=== PATIENT | female | born 1965 | race Caucasian/White ===

== ENCOUNTER 2025-02-06 20:33 | Emergency (ER) | payer SELFPAY ==
[~2025-02-06] VITALS: Ht 152.4 cm; Wt 63.5 kg
--- NOTE | 2025-02-06 21:15 | ERN ---
General Chief Complaint: Other Problems Stated Complaint: SENT FROM [facility] FOR E[facility] Time Seen by MD: 20:43 Source: patient History of Present Illness Initial Comments Patient is a 59-year-old female coming in to have EKG performed. Per patient she has been at [facility] and was sent in for an EKG to be performed. Patient was asymptomatic. Allergies: Coded Allergies: ondansetron (Unverified Allergy, Unknown, HIVES, 02/06/25) tramadol (Unverified Allergy, Unknown, HALLUCINATIONS, 02/06/25) Past Medical History Past Medical History: Bipolar, Depression, Heart Disease, Seizure, Schizophrenia Medical History Other: HEART MURMUR,OSTEOPOROSIS,PTSD Past Surgical History: Unknown ROS Dictation CONSTITUTIONAL: No chills, no fever, no weakness, no diaphoresis, no malaise. HEAD/FACE: No signs of trauma. EENT: No eye pain, no blurred vision, no tearing, no double vision, no ear pain, no ear discharge, no nose pain, no nasal congestion, no throat pain, no throat swelling, no mouth pain. RESPIRATORY: No cough, no orthopnea, no SOB, no stridor, no wheezing. CARDIOVASCULAR: No chest pain, no edema, no palpitations, no syncope. GASTROINTESTINAL/ABDOMINAL: No abdominal pain, no constipation, no diarrhea, no nausea, no vomiting. GENITOURINARY: No abnormal discharge, no dysuria, no frequent urination, no hematuria. No complaints of pain in the genitals. MUSCULOSKELETAL: No back pain, no gout, no joint pain, no joint swelling, no muscle pain, no muscle stiffness, no neck pain. INTEGUMENTARY: No change in color, no change in hair/nails, no dryness, no lesion, no lumps, no rash. NEUROLOGICAL/PSYCH: No anxiety, not depressed, no emotional problem, no headache, no numbness, no pre-existing deficit, no history of seizures, no pj mors, no weakness. HEMATOLOGIC/LYMPHATIC: Not anemic, no history of blood clots, no apparent bleeding, no bruising, glands not swollen. All Systems Negative, Except as Noted. Physical Exam Physical Exam Dictation VITAL SIGNS: Reviewed. GENERAL APPEARANCE: Alert, oriented x3, no acute distress, obese. HEAD AND FACE: Non-traumatic. EYES: PERRL, pink conjunctivas, eyelid no trauma, anterior chamber clear. EARS: Pinnas intact and no signs of trauma or erythema. Ear canals clear and no discharge. TMs no erythema. NOSE: No discharge, no bleeding. OROPHARYNX: Mouth normal, teeth no caries, tongue pink. Pharynx clear, no erythema. Tonsils no exudates, no abscesses noted. Mucous membrane moist. NECK: Supple, non-tender, no thyromegaly, no masses, no JVD, no bruits. BREAST: Deferred. CHEST: No tenderness, no crepitus, no paradoxical movement, no retractions. LUNGS: Clear, well-ventilated, symmetric, no rales, no wheezing, no rhonchi, no stridor, good breath sounds bilaterally. HEART: Regular rate, regular rhythm, no murmur, no gallops. VASCULAR: No peripheral edema. ABDOMEN: Soft, positive bowel sounds, nondistended, no guarding, nontender, no rebound, no masses no hepatomegaly, no splenomegaly, no White's sign, no hernias. RECTAL: Deferred. GENITAL: Deferred. NEUROLOGICAL: Normal speech, gross motor function intact, gross sensory function intact. MUSCULOSKELETAL: Neck nontender, full range of motion, back nontender, full range of motion. EXTREMITIES: Nontender, full range of motion. SKIN: Color pink, dry, no turgor, no rash, no lacerations, no abrasions, no contusions. LYMPHATICS: Deferred. Results Laboratory and Microbiology Labs Reviewed?: Yes EKG/XRAY/US/CT/MRI EKG Comment 02/06/2025 time 8:38 p.m. Ventricular rate 93 Sinus rhythm [place] [address] wave elevation or depression MDM MDM: Differential diagnosis: Wellness exam, EKG evaluation Rationale: Tests considered and ordered secondary to shared decision making include: Previous outside records reviewed: Old ER visits. Risk of complication and/or morbidity or mortality of patient management: None Medications-Per medication reconciliation Need for hospitalization: Patient does not meet criteria for hospitalization. Patient is a 59-year-old female sent over from [facility] were patient was staying in a tub EKG performed. Patient states that she was asymptomatic. EKG was performed within normal limits. Patient will be discharged in stable condition. ED Course Orders Procedure Category Date Status Time 12 Lead Ekg Tracing- EKG 02/06/25 Logged Technical 20:35 Vital Signs Date Time Temp Pulse Resp B/P (MAP) Pulse Ox O2 Delivery O2 Flow Rate FiO2 02/06/25 20:47 98.4 85 16 153/68 96 Room Air 0 DX & DISP Disposition: Discharge Departure Impression: Primary Impression: Wellness examination Condition: Stable Additional Instructions: FOLLOW-UP WITH PRIMARY CARE PROVIDER IN 1 TO 2 DAYS. TAKE MEDICATIONS DIRECTED HERE IN THE EMERGENCY ROOM. OKAY TO CONTINUE HOME MEDICATIONS UNLESS OTHERWISE DISCUSSED DURING YOUR VISIT IN THE EMERGENCY ROOM TODAY. RETURN TO YOUR NEAREST EMERGENCY ROOM IF SYMPTOMS WORSEN OR IF THERE IS NO IMPROVEMENT. CALL 911 IF YOU NEED IMMEDIATE ASSISTANCE. TAKE TYLENOL [id number] NEEDED AND IF NO CONTRAINDICATIONS ARE PRESENT. INCREASE ORAL HYDRATION. A WOUND CULTURE OR URINE CULTURE WAS ORDERED HERE IN THE EMERGENCY ROOM DEPARTMENT PLEASE FOLLOW-UP WITH PRIMARY CARE PROVIDER AND ADVISE THEM TO GET REPORTS FROM OUR FACILITY. IF YOU HAD ANY MARK WRAP/SPLINTS THAT WERE APPLIED HERE, PLEASE DO NOT REMOVE THEM UNTIL YOU SEE YOUR PRIMARY CARE OR SPECIALTY. Referrals: Referrals: MICHEL ESPARZA MD Time of Disposition: 21:15 LAMONT OLIVARES MD Feb 06, 2025 21:15
--- NOTE | 2025-02-06 21:43 | NUR ---
[facility] CONTACTED FOR TRANSFER TO [facility]
--- NOTE | 2025-02-06 22:01 | NUR ---
REPORT GIVEN TO GEETA KAY AT [facility], PENDING EMS.
[2025-02-07 01:54] VITALS: BP 130/61; PULSE 86; RESP 16; TEMP 98.5; O2SAT 96
--- NOTE | 2025-02-07 06:44 | EKG ---
[facility] Test Date: 2025-02-06 Test Time: 20:38:30 Pat Name: CLYDE MARTINO Department: [facility] Room: Gender: F Medical Records Manager: [id number] : 1965 Requested By: LAMONT OLIVARES Order Number: [id number] Reading MD: Moisés Ashby Measurements Intervals [place] Rate: 93 P: 46 [place]: 142 QRS: 49 QRSD: 79 T: 35 QT: 383 QTc: 477 Interpretive Statements Sinus rhythm Probable left atrial enlargement Anteroseptal infarct, age indeterminate No previous ECG available for comparison Electronically Signed On 02-07-2025 21:38:40 CDT by Moisés Ashby Please click the below link to view image of tracing.
== END 2025-02-07 01:54 ==
LOC: EDH 20:33
DX: Z00.00 Encounter for general adult medical examination without abnormal findings (principal); F20.9 Schizophrenia, unspecified; Z88.5 Allergy status to narcotic agent
CPT/HCPCS: 93005; 99283